=== PATIENT | male | born 1960 | race Caucasian/White ===

== ENCOUNTER 2024-08-16 00:52 | Emergency (ER) | payer BC, SELFPAY ==
[2024-08-16] VITALS (17 sets, daily range): BP systolic 156–172; BP diastolic 79–139; PULSE 81–93; RESP 16–18; TEMP 36.6; O2SAT 94–963
--- NOTE | 2024-08-16 00:56 | W.ED.GENAD ---
Discharge Plan Disposition Patient Disposition: Home Condition: Good Discharge Details Clinical Impression: Laceration of eyebrow, right, Laceration of nose, Subconjunctival hemorrhage, Abrasion, corneal, Traumatic mydriasis, Closed fracture nasal bone Primary Care Provider: None,None ED Provider: Juan Geronimo [place] Meds and New Rx's Prescriptions: New erythromycin 5 mg/gram (0.5 %) Ointment 1 cm OD QID 7 Days Qty: 3.5 0RF Discharge Instructions Instructions: Laceration Repair With Stitches ED, Corneal Abrasion ED, Laceration Repair With Glue ED, Nose Fracture ED, Subconjunctival hemorrhage Additional Instructions: You were seen in the emergency department after a fall with laceration and injury to the right side of your face. Imaging shows no significant injury other than nasal bone fracture which should not require any management. Your eyebrow laceration was repaired and the stitches will need to come out in 5 to 6 days. Your nose laceration was superficial and was repaired with glue. Do not scrub this area and do not apply antibiotic ointment. The right thigh did sustain injury with corneal abrasion, subconjunctival hemorrhage and a stunned pupil. I did speak with ophthalmology at [facility]. Please use the erythromycin ointment for the corneal abrasions. You should see an product design specialist this week when you return home. Return to the ED at once if any eye pain, vision change, double vision, other concerns. Watch for signs of infection to the lacerations which will include increasing redness, pain, swelling. HPI General Mode of arrival: EMS. Date/Time Provider Initiated Documentation: 08/16/24 00:56. Limitations to Documentation: no limitations. Information obtained by: patient and RN notes reviewed. HPI Narrative: Patient presents to ED status post trip and fall. Patient attempted to catch himself but was unable to. He struck a 5 gallon plastic pill that was upside down. Sustained injury to the right eyebrow area. Denies any loss of consciousness. Denies any other injury. Denies neck pain, chest pain, shortness of breath, extremity pain. Denies any neurologic symptoms. Last tetanus was 2013 per the patient. Has been drinking alcohol this evening. Related Data Home Medications ?Medication ?Instructions ?Recorded ?Confirmed erythromycin 5 mg/gram (0.5 %) eye 1 cm OD QID 7 days #3.5 grams 08/16/24 ointment Previous Rx's ?Medication ?Instructions ?Recorded erythromycin 5 mg/gram (0.5 %) eye 1 cm OD QID 7 days #3.5 grams 08/16/24 ointment Allergies Allergy/AdvReac Type Severity Reaction Status Date / Time hay fever Allergy Mild uri Uncoded 08/16/24 00:55 symptoms General Stated Complaint: HeadInjury LILIA: 3 Review of Systems Narrative: Per HPI Exam Narrative Exam Narrative: Const: WDWN male in NAD. VS per triage. HEENT: NC. 2 cm T-shaped stellate laceration to right eyebrow area. Superficial laceration to right side of nose. No orbital tenderness. No nasal tenderness. No hemotympanum. Eyes: Right eye with lateral subconjunctival hemorrhage. Pupil is oval in size and nonreactive. Vision is intact in the right eye. Right eye seems to be turned laterally compared to left eye. Left eye/pupil/conjunctiva completely normal. EOMI. Neck: Supple. Trachea midline. No midline posterior tenderness. Lungs: Normal respiratory effort. Lungs are clear. No chest wall tenderness. Neuro: A+O x 3. Normal speech, mentation. Cranial nerves II - XII grossly intact. No gross motor or sensory deficit. Ext: No deformity or tenderness. Course Vital Signs Vital signs: Vital Signs Temperature 97.9 F 08/16/24 00:53 Pulse 86 08/16/24 00:53 Respiratory Rate 18 08/16/24 00:53 Blood Pressure 165/139 H 08/16/24 00:53 Pulse Oximetry 963 H 08/16/24 00:53 Temperature 97.9 F 08/16/24 00:53 Temperature Source Temporal Artery Scan 08/16/24 00:53 Pulse 86 08/16/24 00:53 Respiratory Rate 18 08/16/24 00:53 Respiratory Effort Normal 08/16/24 00:55 Blood Pressure 165/139 H 08/16/24 00:53 Blood Pressure Position Sitting 08/16/24 00:53 Pulse Oximetry 963 H 08/16/24 00:53 Oxygen Delivery Method Room Air 08/16/24 00:53 Oxygen Flow Rate 0 08/16/24 00:53 Procedures Laceration Laceration 1: Site: face Side (If applicable): right Size (cm): 2 Description: stellate (T shape) and clean Depth: simple, single layer Local anesthetic: Lidocaine 1% and with Epi Amount of anesthesia used (mL): 1.5 Pre-repair: wound explored, irrigated extensively and deep structures intact Skin layer closed with: nylon Size (cm): 5-0 Number of sutures: 8 Technique: simple, interrupted Laceration 2: Site: face Size (cm): 3 Description: linear Depth: simple, single layer Pre-repair: irrigated extensively Skin layer closed with: other (skin adhesive) Medical Decision Making Patient presenting status post trip and fall with his face striking a 5 gallon plastic bucket. No loss of consciousness. No neurologic change. Has a laceration to the right eyebrow area but also has evidence of potential orbital injury with mild disconjugate gaze, subconjunctival hemorrhage, abnormal right pupil. Despite this vision in the right eye appears normal. Will need to get visual acuity. Will test with fluorescein to make sure no evidence of streaming. Will update tetanus. CT head/orbits ordered. No spinal tenderness and neuro intact. Upon return from CT scan patient's eyebrow laceration was anesthetized, irrigated, sutured with good results. Superficial laceration to the nose was cleaned and repaired with skin adhesive. CT of the head and orbits negative except for nasal bone fracture and soft tissue laceration/swelling. Fluorescein staining of the eye reveals 2 small corneal abrasions but no evidence of streaming. Pupil remains enlarged, oval, minimally reactive. It is not teardrop shaped or peaked. Vision remains intact and visual acuity in the right eye is 20/70, left eye 20/70, both eyes 20/50. Case was discussed with ophthalmology at [facility]. Findings on imaging and exam discussed. Patient felt to not have ruptured globe given normal visual acuity and normal CT orbits. Suspect traumatic mydriasis associated with blunt trauma. Will place patient on erythromycin ointment due to the corneal abrasions. Discussed need for ophthalmology follow-up when he returns to [place] this week. Follow-up with primary care for suture removal and 5 to 6 days. Wound care discussed. Return precautions discussed. PFSH All Active Problems (Updated 08/16/24 @ 03:15 by Juan Geronimo MD) Closed fracture nasal bone (Acute) Traumatic mydriasis (Acute) Abrasion, corneal (Acute) Subconjunctival hemorrhage (Acute) Laceration of nose (Acute) Laceration of eyebrow, right (Acute) Medical History (Updated 08/16/24 @ 03:15 by Juan Geronimo MD) No significant past medical history Social History Smoking/Tobacco Use Status: Never Smoking risk assessment performed?: Yes Alcohol Intake: current Alcohol Intake frequency: a few times a month Alcohol type: beer Drug use: Never Substance use type: does not use
[2024-08-16] MEDS: Tetanus & Diphtheria Tox,ADULT 0.5 ML VIAL IM (01:24)
--- NOTE | 2024-08-16 01:35 | DI.CT_ITS ---
Exam(s) CT HEAD ORBITS WO EXAM: CT HEAD ORBITS WO CLINICAL HISTORY: trauma/head injury/R orbit injury. TECHNIQUE: Imaging Protocol: Axial computed tomography images with coronal and sagittal reformatted images were created and reviewed COMPARISON: No exams were available for comparison FINDINGS: CT Head: Ventricles and Extra axial spaces: Normal in size and morphology for the patient's age. Hemorrhage: None. Cerebral parenchyma: No mass effect. No acute territorial infarct. Midline shift: None. Brainstem/Cerebellum: Normal. Calvarium: Normal. There is a mildly depressed right nasal bone fracture. Visualized Paranasal sinuses/Mastoids: There is mucosal thickening in the maxillary sinuses bilateral ly. There is air-fluid level in the left maxillary sinus. There is mucosal thickening in the ethmoi d air cells, sphenoid sinuses and frontal sinuses bilaterally. The mastoid air cells are clear. Soft Tissues: Unremarkable. CT Face: Facial Bones: There is a mildly depressed right nasal bone fracture. Sinuses and Mastoids: Unremarkable. Globes, extraocular muscles, optic nerves and retrobulbar fat: Normal. Upper aerodigestive tract: Normal. Mandible and bilateral temporomandibular joints: Normal. Soft tissues: There is soft tissue swelling overlying the right nasal bone and the right cheek. Ther e is mild right periorbital soft tissue swelling. IMPRESSION: 1. No acute intracranial process. 2. Acute mildly depressed right nasal bone fracture with associated soft tissue swelling. 3. Soft tissue swelling in the right periorbital soft tissues and overlying the right cheek. 4. Unremarkable orbits and retro-orbital soft tissues. 5. Pansinusitis. RADIATION DOSE DELIVERED: 1,008.2mGy.cm Total DLP DATA REPOSITORY: All CT scans at this facility are submitted to the National Radiology Data Registry (NRDR) Dose Index Registry (DIR) with the [employer] ([employer]). RADIATION OPTIMIZATION: All CT scans at this facility use at least one of these dose optimization te chniques: automated exposure control; mA and/or kV adjustment per patient size (includes targeted exa ms where dose is matched to clinical indication); or iterative reconstruction.
[2024-08-16] MEDS: Fluorescein STRIPS 100/BOX 1 MG OP (01:42)
[2024-08-16] MEDS: Lidocaine 1% Multi-Dose W/EPI 1/100,000 10 ML VIAL IJ (01:43)
--- NOTE | 2024-08-16 01:51 | DI.VRAD_ITS ---
PROCEDURE INFORMATION: Exam: CT Head Without Contrast Exam date and time: 08/16/2024 1:25 AM Age: 64 years old Clinical indication: Injury or trauma; Fall; Blunt trauma (contusions or hematomas); Consciousness not specified; Orbit/periorbital; Right; Injury date: 08/16/24; Patient HX: Trauma/head injury/r orbit injury TECHNIQUE: Imaging protocol: Computed tomography of the head without contrast. Radiation optimization: All CT scans at this facility use at least one of these dose optimization techniques: automated exposure control; mA and/or kV adjustment per patient size (includes targeted exams where dose is matched to clinical indication); or iterative reconstruction. COMPARISON: No relevant prior studies available. FINDINGS: Brain: No brain edema. No intracranial hemorrhage. Cerebral ventricles: No ventriculomegaly. Paranasal sinuses: Multifocal bilateral sinusitis. Mastoid air cells: Unremarkable. Bones: Acute displaced nasal bone fractures. Soft tissues: Unremarkable. IMPRESSION: 1. Multifocal bilateral sinusitis. 2. Acute displaced nasal bone fractures. 3. No acute brain findings. PROCEDURE INFORMATION: Exam: CT Maxillofacial Without Contrast Exam date and time: 08/16/2024 1:25 AM Age: 64 years old Clinical indication: Injury or trauma; Fall; Blunt trauma (contusions or hematomas); Consciousness not specified; Orbit/periorbital; Right; Injury date: 08/16/24; Patient HX: Trauma/head injury/r orbit injury TECHNIQUE: Imaging protocol: Computed tomography of the face without contrast. Radiation optimization: All CT scans at this facility use at least one of these dose optimization techniques: automated exposure control; mA and/or kV adjustment per patient size (includes targeted exams where dose is matched to clinical indication); or iterative reconstruction. COMPARISON: No relevant prior studies available. FINDINGS: Orbital cavities: Orbits are normal. Globes are unremarkable. Paranasal sinuses: Multifocal bilateral sinusitis. Bones: Acute comminuted displaced nasal bone fractures. Remaining facial bones intact. Probable acute fracture of the anterosuperior vomer. Soft tissues: Facial contusion/laceration. IMPRESSION: 1. Acute comminuted displaced nasal bone fractures. 2. Probable acute fracture of the anterosuperior vomer. 3. Multifocal bilateral sinusitis. Dictated and Authenticated by: Arvind Grant MD. Ordering:JING Martinez MD
--- OUTSIDE RECORDS SUMMARY | 2024-08-16 03:25 | XMS_ITS | Encounter Summary ---
Author Organization [address] [address] Care Team Providers Care Server Manager Name Role Phone Bam Mayorga MD Primary Care Provider [phone] Encounter Details Date Type Department Care Team (Late st Contact Info) Description 02/28/2024 Orders Only [facility] [address] [place] [address] Bam Mayorga MD [address] [address] Social History Tobacco Use Types Packs/Day Years Used Date Smoking Tobacco: Never Smokeless Tobacco: Never Alcohol Use Standard Drinks/Week Comments No 0 (1 standard drink = 0.6 oz pur e alcohol) Sex and Gender Information Value Date Recorded Sex Assigned at Not on file Gender Identity Not on file Sexual Orientation Not on file documented as of this encounter Plan of Treatment Not on file documented as of this encounter Procedures Procedure Name Priority Date/Time Associated Diagnosis Comments CARDIOVASCULAR RISK ASSESSMENT Routine 02/28/2024 1:11 PM EDT PSA, TOTAL Routine 02/28/2024 1:11 PM EDT MEASLES,MUMPS RUBELLA IMMUNITY Routine 02/28/2024 1:11 PM EDT URINALYSIS WITH REFLEX TO MICROSCOPIC Routine 02/28/2024 1:11 PM EDT SPECIMEN STATUS REPORT (ROLPRB) Routine 02/28/2024 1:11 PM EDT CBC/DIFF AMBIGUOUS DEFAULT Routine 02/28/2024 1:11 PM EDT VARICELLA ZOSTER ANTIBODY, IGG Routine 02/28/2024 1:11 PM EDT HIGH SENSITIVITY CRP Routine 02/28/2024 1:11 PM EDT TSH Routine 02/28/2024 1:11 PM EDT HEMOGLOBIN A1C Routine 02/28/2024 1:11 PM EDT LIPID PANEL Routine 02/28/2024 1:11 PM EDT COMPREHENSIVE METABOLIC PANEL Routine 02/28/2024 1:11 PM EDT documented in this encounter Results * CARDIOVASCULAR RISK ASSESSMENT (02/28/2024 1:11 PM EDT) INTERPRETATION Note [facility] 1 Comment:Supplemental report is available. 02/28/2024 1:11 PM EDT 02/28/2024 Narrative [facility] - 03/02/2024 6:35 AM EDT Performed at: ??01 - [facility] [address] [place] [address] ??[id number] Radio Television Technical Director: Dayna Plasencia MD, Phone: ??[phone] Bam Mayorga MD [facility] PROBLEM CODE S [facility] 1 * SPECIMEN STATUS REPORT (ROLPRB) (02/28/2024 1:11 PM EDT) Specimen Status Report Comment [facility] 1 Comment: Bhargav Abbrefrancis CMP14 Default Ambjuni Abbrefrancis CMP14 Default A hand-written panel/profile was received from your office. In accordance with the [facility] Ambiguous Test Code Policy dated May 2003, we have completed your order by using the closest currently or formerly recognized AMA panel. ??We have assigned Comprehensive Metabolic Panel (14), Test Code #436265 to this request. ??If this is not the testing you wished to receive on this specimen, please contact the [employer] Client Inquiry/Technical Services Department to clarify the test order. ??We appreciate your business. Bhargav Ramirez LP Default Bhargav Ramirez LP Default A hand-written panel/profile was received from your office. In accordance with the [facility] Ambiguous Test Code Policy dated May 2003, we have completed your order by using the closest currently or formerly recognized AMA panel. ??We have assigned Lipid Panel, Test Code #225694 to this request. If this is not the testing you wished to receive on this specimen, please contact the [employer] Client Inquiry/Technical Services Department to clarify the test order. ??We appreciate your business. 02/28/2024 1:11 PM EDT 02/28/2024 Narrative [facility] - 02/29/2024 11:05 AM EDT Performed at: ??01 - [facility] ??[id number] Radio Television Technical Director: Nisha Chowdary MD, Phone: ??[phone] Bam Mayorga MD [facility] PROBLEM CODE S [facility] 1 * High sensitivity CRP (02/28/2024 1:11 PM EDT) CRP, High Sensitivity 1.00 0.00 - 3.00 mg/L [facility] 1 Comment: ? Relative Risk for Future Cardiovascular Event ? Low ? <1.00 ? Average ? 1.00 - 3.00 ? High ?>3.00 02/28/2024 1:11 PM EDT 02/28/2024 Narrative [facility] - 02/29/2024 11:05 AM EDT Performed at: ??01 - [facility] [address] ??[id number] Radio Television Technical Director: Nisha Chowdary MD, Phone: ??[phone] Bam Mayorga MD LAB BLOOD ORDERABLES Performing Organization Address [facility] de Phone Number [facility] 1 * Varicella zoster antibody, IgG (02/28/2024 1:11 PM EDT) Varicella Zoster IgG 1,905 Immune >165 index [facility] 1 Comment: ? Negative ?<135 ? Equivocal ?135 - 165 ? Positive ?>165 A positive result generally indicates exposure to the pathogen or administration of specific immunoglobulins, but it is not indication of active infection or stage of disease. 02/28/2024 1:11 PM EDT 02/28/2024 Narrative [facility] - 02/29/2024 11:05 AM EDT Performed at: ??01 - [facility] [address] ??[id number] Radio Television Technical Director: Nisha Chowdary MD, Phone: ??[phone] Bam Mayorga MD LAB BLOOD ORDERABLES Performing Organization Address [facility] de Phone Number [facility] 1 * (ABNORMAL) PSA, Total (02/28/2024 1:11 PM EDT) Prostate Specific Ag, Serum 6.2(H) 0.0 - 4.0 ng/mL [facility] 1 Comment: Omar ECLIA methodology. According to the [place] [employer], Serum PSA should decrease and remain at undetectable levels after radical prostatectomy. The AUA defines biochemical recurrence as an initial PSA value 0.2 ng/mL or greater followed by a subsequent confirmatory PSA value 0.2 ng/mL or greater. Values obtained with different assay methods or kits cannot be used interchangeably. Results cannot be interpreted as absolute evidence of the presence or absence of malignant disease. 02/28/2024 1:11 PM EDT 02/28/2024 Narrative [facility] - 02/29/2024 11:05 AM EDT Performed at: ??01 - [facility] [address] ??[id number] Radio Television Technical Director: Nisha Chowdary MD, Phone: ??[phone] Bam Mayorga MD LAB BLOOD ORDERABLES Performing Organization Address [facility] de Phone Number [facility] 1 * TSH (02/28/2024 1:11 PM EDT) Pathologist [facility] TSH 1.920 0.450 - 4.500 uIU/mL [facility] 1 02/28/2024 1:11 PM EDT 02/28/2024 Narrative [facility] - 02/29/2024 11:05 AM EDT Performed at: ??01 - [facility] [address] ??[id number] Radio Television Technical Director: Nisha Chowdary MD, Phone: ??[phone] Bam Mayorga MD LAB BLOOD ORDERABLES Performing Organization Address [facility]/ZIP Co de Phone Number [facility] 1 * Hemoglobin A1c (02/28/2024 1:11 PM EDT) Glycohemoglobin A1C 5.6 4.8 - 5.6 % [facility] 1 Comment: ? Prediabetes: 5.7 - 6.4 ? Diabetes: >6.4 ? Glycemic control for adults with diabetes: <7.0 02/28/2024 1:11 PM EDT 02/28/2024 Narrative [facility] - 02/29/2024 11:05 AM EDT Performed at: ??01 - [facility] [address] ??[id number] Radio Television Technical Director: Nisha Chowdary MD, Phone: ??[phone] Bam Mayorga MD LAB BLOOD ORDERABLES [facility] 1 * (ABNORMAL) MEASLES,MUMPS RUBELLA ANTIBODIES (02/28/2024 1:11 PM EDT) Rubella Antibodies, IgG 1.76 Immune >0.99 index [facility] 1 Comment: ?Non-immune ? <0.90 ?Equivocal ??0.90 - 0.99 ?Immune ? >0.99 Rubeola AB, IgG <13.5(L) Immune >16.4 AU/mL [facility] 1 Comment: ? Negative ?<13.5 ? Equivocal 13.5 - 16.4 ? Positive ?>16.4 Presence of antibodies to Rubeola is presumptive evidence of immunity except when acute infection is suspected. Mumps Abs, IgG 10.6(L) Immune >10.9 AU/mL [facility] 1 Comment: A second sample should be collected and tested no less than 2-4 weeks. ?Negative ? <9.0 ?Equivocal ??9.0 - 10.9 ?Positive ?>10.9 A positive result generally indicates past exposure to Mumps virus or previous vaccination. 02/28/2024 1:11 PM EDT 02/28/2024 Narrative [facility] - 02/29/2024 11:05 AM EDT Performed at: ??01 - [facility] [place] [address] [place], [place] ??[id number] Radio Television Technical Director: Nisha Chowdary MD, Phone: ??[phone] Bam Mayorga MD LAB BLOOD ORDERABLES [facility] * (ABNORMAL) Lipid panel (02/28/2024 1:11 PM EDT) Cholesterol, Total 208(H) 100 - 199 mg/dL [facility] 1 Triglycerides 127 0 - 149 mg/dL [facility] 1 HDL Cholesterol 41 >39 mg/dL [facility] 1 VLDL 23 5 - 40 mg/dL [facility] 1 LDL Cholesterol Calc 144(H) 0 - 99 mg/dL [facility] 1 02/28/2024 1:11 PM EDT 02/28/2024 Narrative [facility] - 02/29/2024 11:05 AM EDT Performed at: ??01 - [facility] [place] [address] [place], [place] ??[id number] Radio Television Technical Director: Nisha Chowdary MD, Phone: ??[phone] Bam Mayorga MD LAB BLOOD ORDERABLES Performing Organization Address [facility] Co de Phone Number [facility] 1 * Urinalysis with Reflex to Microscopic (02/28/2024 1:11 PM EDT) Specific [place] 1.007 1.005 - 1.030 [facility] 1 pH Urine 6.5 5.0 - 7.5 [facility] 1 Color Yellow Yellow [facility] 1 Appearance Urine Clear Clear [facility] 1 WBC Esterase Negative Negative [facility] 1 Protein, Urine Negative Negative/Tra ce [facility] 1 Glucose UA Negative Negative [facility] 1 Ketones Negative Negative [facility] 1 Occult Blood Negative Negative [facility] 1 Bilirubin, Urine Negative Negative [facility] 1 Urobilinogen, Semi-Qn 0.2 0.2 - 1.0 mg/dL [facility] 1 Nitrite Negative Negative [facility] 1 Microscopic Examination Comment [facility] 1 Comment:Microscopic not vanessa cated and not performed. 02/28/2024 1:11 PM EDT 02/28/2024 Narrative [facility] - 02/29/2024 11:05 AM EDT Performed at: ??01 - [facility] [address] ??[id number] [employer] Television Technical Director: Nisha Chowdary MD, Phone: ??[phone] Bam Mayorga MD URINE ORDERABLES Performing Organization Address [facility] Co de Phone Number [facility] * (ABNORMAL) Comprehensive metabolic panel(CMP) (02/28/2024 1:11 PM EDT) Glucose 95 70 - 99 mg/dL [facility] 1 BUN 10 8 - 27 mg/dL [facility] 1 Creatinine 1.14 0.76 - 1.27 mg/dL [facility] 1 eGFR (CKD-EPI ) 72 >59 mL/min/1.7 3 [facility] 1 BUN/Creatinine Ratio 9(L) 10 - 24 [facility] 1 Sodium 139 134 - 144 mmol/L [facility] 1 Potassium 4.6 3.5 - 5.2 mmol/L [facility] 1 Chloride 101 96 - 106 mmol/L [facility] 1 Carbon Dioxide 26 20 - 29 mmol/L [facility] 1 Calcium 9.5 8.6 - 10.2 mg/dL [facility] 1 Protein, Total 6.8 6.0 - 8.5 g/dL [facility] 1 Albumin 4.2 3.9 - 4.9 g/dL [facility] 1 Globulin 2.6 1.5 - 4.5 g/dL [facility] 1 A/G Ratio 1.6 1.2 - 2.2 [facility] 1 Total Bilirubin 0.8 0.0 - 1.2 mg/dL [facility] 1 Alkaline Phosphatase 90 44 - 121 IU/L [facility] 1 AST (SGOT) 19 0 - 40 IU/L [facility] 1 ALT (SGPT) 19 0 - 44 IU/L [facility] 1 02/28/2024 1:11 PM EDT 02/28/2024 Narrative [facility] - 02/29/2024 11:05 AM EDT Performed at: ??01 - [facility] [address] ??[id number] Radio Television Technical Director: Nisha Chowdary MD, Phone: ??[phone] Bam Mayorga MD LAB BLOOD ORDERABLES [facility] 1 * CBC/Diff Ambiguous Default (02/28/2024 1:11 PM EDT) WBC 6.9 3.4 - 10.8 x10E3/uL [facility] 1 RBC 5.75 4.14 - 5.80 x10E6/uL [facility] 1 Hemoglobin 16.7 13.0 - 17.7 g/dL [facility] 1 Hematocrit 49.7 37.5 - 51.0 % [facility] 1 MCV 86 79 - 97 fL [facility] 1 MCH 29.0 26.6 - 33.0 pg [facility] 1 MCHC 33.6 31.5 - 35.7 g/dL [facility] 1 RDW 12.3 11.6 - 15.4 % [facility] 1 Platelet Count 310 150 - 450 x10E3/uL [facility] 1 Neutrophils 66 Not Estab. % [facility] 1 Lymphocytes 21 Not Estab. % [facility] 1 Monocytes 9 Not Estab. % [facility] 1 Eosinophils % Auto 3 Not Estab. % [facility] 1 Basophils 1 Not Estab. % [facility] 1 Neutrophils Absolute 4.6 1.4 - 7.0 x10E3/uL [facility] 1 Lymphocytes Absolute 1.5 0.7 - 3.1 x10E3/uL [facility] 1 Monocytes Absolute 0.6 0.1 - 0.9 x10E3/uL [facility] 1 Eosinophils Absolute 0.2 0.0 - 0.4 x10E3/uL [facility] 1 Basophils Absolute 0.1 0.0 - 0.2 x10E3/uL [facility] 1 Immature Granulocytes 0 Not Estab. % [facility] 1 Immature Granulocytes ABS 0.0 0.0 - 0.1 x10E3/uL [facility] 1 Comment: A hand-written panel/profile was received from your office. In accordance with the [facility] Ambiguous Test Code Policy dated May 2003, we have assigned CBC with Differential/Platelet, Test Code #[id number] to this request. If this is not the testing you wished to receive on this specimen, please contact the [facility] Client Inquiry/ Technical Services Department to clarify the test order. We appreciate your business. 02/28/2024 1:11 PM EDT 02/28/2024 Narrative [facility] - 02/29/2024 11:05 AM EDT Performed at: ??01 - [facility] [address] ??[id number] Radio Television Technical Director: Nisha Chowdary MD, Phone: ??[phone] Bam Mayorga MD [facility] PROBLEM CODE S [facility] 1 documented in this encounter Visit Diagnoses Not on filedocumented in this encounter Care Teams Server Manager Relationship Specialty Start Date End Date Bam Mayorga MD [facility] [address] [address] PCP - General Internal Medicine 01/09/18 documented as of this encounter
--- OUTSIDE RECORDS SUMMARY | 2024-08-16 03:25 | XMS_ITS | Clinical Summary ---
Author Organization [facility] Address [address] [place] [address] Care Team Providers Care Flow Floor Attendant Name Role Phone Bam Mayorga MD Primary Care Provider [phone] Allergies No known active allergies Medications No known medications Active Problems Problem Noted Date Diagnosed Date Hyperlipidemia Immunizations Name Administration Dates Next Due Hepatitis B 02/01/2006 Td 04/13/2008 Family History Medical History Relation Comments No Known Problems Daughter No Known Problems Father Relation Status Comments Daughter Alive Father Mother Social History Tobacco Use Types Packs/Day Years Used Date Smoking Tobacco: Never Smokeless Tobacco: Never Alcohol Use Standard Drinks/Week Comments No 0 (1 standard drink = 0.6 oz pur e alcohol) Sex and Gender Information Value Date Recorded Sex Assigned at Not on file Gender Identity Not on file Sexual Orientation Not on file Last Filed Vital Signs Vital Sign Reading Time Taken Comments Blood Pressure 138/102 01/09/2018 6:55 PM EST Pulse 112 01/09/2018 6:55 PM EST Temperature 36.8 ??C (98.2 ??F) 01/09/2018 6:55 PM ES T Respiratory Rate 20 01/09/2018 6:55 PM EST Oxygen Saturation 98% 01/09/2018 6:55 PM EST Inhaled Oxygen Concentration - - Weight 96.2 kg (212 lb) 01/09/2018 6:55 PM EST Height 175.3 cm (5' 9) 01/09/2018 6:55 PM EST Body Mass Index 31.31 01/09/2018 6:55 PM EST Plan of Treatment Health Maintenance Due Date Last Done Comments Preventative/Well Visit 1962 [facility] ANNUAL DEPRESSION SCREENING 1972 [facility] BLOOD PRESSURE 140/ 90 OR UNDER 1978 [facility] BMI DOCUMENTED 1978 [facility] TOBACCO CESSATION COUNSELING 1978 HEPATITIS C SCREENING 1978 [facility] ACCESS TO PREVENTIVE/AMBULATORY VISIT 1980 COLOGUARD 2005 COLONOSCOPY 2005 COLORECTAL CANCER SCREENING 2005 FIT (Fecal Immunochemical Test) 2005 FOBT 2005 SIGMOIDOSCOPY 2005 [facility] COLON FOBT 2010 [facility] COLONOGRAPHY (CT) 2010 [facility] COLONOSCOPY 2010 [facility] FIT-DNA TEST 2010 [facility] FLEX SIGMOIDOSCOPY 2010 Colon Cancer Screenings 2010 Shingrix Vaccine (#1) 2010 RSV Vaccine Needed (1 - 1-do se 60+ series) 2020 INFLUENZA VACCINE 06/18/2024 COVID VACCINE (2023- season) 2024 Pneumococcal Vaccine: Ped & Adult <65 Aged Out No longer eligible b ased on patient's age to complete this topic Care Teams Flow Floor Attendant Relationship Specialty Start Date End Date Bam Mayorga MD [facility] [address] [address] PCP - General Internal Medicine 01/09/18
--- OUTSIDE RECORDS SUMMARY | 2024-08-16 03:25 | XMS_ITS | Encounter Summary ---
Author Organization [facility] Address [address] [place] [address] Care Team Providers Care Radio Frequency Engineer Name Role Phone Bam Mayorga MD Primary Care Provider [phone] Encounter Details Date Type Department Care Team (Late st Contact Info) Description 01/09/2018 Abstract [facility] [address] [phone] Bam Mayorga MD [address] [address] Social History Tobacco Use Types Packs/Day Years [...] on file documented as of this encounter Visit Diagnoses Not on filedocumented in this encounter Care Teams Radio Frequency Engineer Relationship Specialty Start Date End Date Bam Mayorga MD [address] [place] [address] PCP - General Internal Medicine 01/09/18 documented as of this encounter
--- OUTSIDE RECORDS SUMMARY | 2024-08-16 03:25 | XMS_ITS | Encounter Summary ---
Author Organization [address] [address] Care Team Providers Care Community Relations Assistant Name Role Phone Bam Mayorga MD Primary Care Provider [phone] Encounter Details Date Type Department Care Team (Late st Contact Info) Description 02/05/[address] [facility] [address] [place] [address] Bam Mayorga MD [address] [address] Social History Tobacco Use Types Packs/Day Years [...] Associated Diagnosis Comments CARDIOVASCULAR RISK ASSESSMENT Routine 02/05/2020 1:04 PM EDT LITHOLINK CKD PROGRAM Routine 02/05/2020 1:04 PM EDT PSA, TOTAL Routine 02/05/2020 1:04 PM EDT URINALYSIS WITH REFLEX TO MICROSCOPIC Routine 02/05/2020 1:04 PM EDT SPECIMEN STATUS REPORT (ROLPRB) Routine 02/05/2020 1:04 PM EDT CBC/DIFF AMBIGUOUS DEFAULT Routine 02/05/2020 1:04 PM EDT C-REACTIVE PROTEIN Routine 02/05/2020 1: 04 PM EDT TSH Routine 02/05/2020 1:04 PM EDT HEMOGLOBIN A1C Routine 02/05/2020 1:04 PM EDT LIPID PANEL Routine 02/05/2020 1:04 PM EDT COMPREHENSIVE METABOLIC PANEL Routine 02/05/2020 1:04 PM EDT documented in this encounter Results * SPECIMEN STATUS REPORT (ROLPRB) (02/05/2020 1:04 PM EDT) Specimen Status Report Comment [facility] 1 Comment: Ambig Abbrev CMP14 Default Ambig Abbrev CMP14 Default A hand-written panel/profile was received from your office. In accordance with the [facility] Ambiguous Test Code Policy dated May 2003, we have completed your order by using the closest currently or formerly recognized AMA panel. ??We have assigned Comprehensive Metabolic Panel (14), Test Code #[id number] to this request. ??If this is not the testing you wished to receive on this specimen, please contact the [facility] Client Inquiry/Technical Services Department to clarify the test order. ??We appreciate your business. Ambig Abbrev LP Default Ambig Abbrev LP Default A hand-written panel/profile was received from your office. In accordance with the [facility] Ambiguous Test Code Policy dated May 2003, we have completed your order by using the closest currently or formerly recognized AMA panel. ??We have assigned Lipid Panel, Test Code #[id number] to this request. If this is not the testing you wished to receive on this specimen, please [facility] to clarify the test order. ??We appreciate your business. 02/05/2020 1:04 PM EDT 02/05/2020 Narrative [facility] - 02/08/2020 2:05 PM EDT Performed at: ??01 - [facility] ??[id number] Cl[employer] Bale Header: Sara Zuñiga MD, Phone: ??[phone] Bam Mayorga MD [facility] PROBLEM CODE S Performing Organization Address [facility] de Phone Number [facility] 1 * C-reactive protein (02/05/2020 1:04 PM EDT) C-Reactive Protein 2 0 - 10 mg/L [facility] 1 02/05/2020 1:04 PM EDT 02/05/2020 Narrative [facility] - 02/08/2020 2:05 PM EDT Performed at: ??01 - [facility] [address] ??[id number] [employer] Header: Sara Zuñiga MD, Phone: ??[phone] Bam Mayorga MD LAB BLOOD ORDERABLES Performing Organization Address [facility] de Phone Number [facility] 1 * (ABNORMAL) PSA, Total (02/05/2020 1:04 PM EDT) Prostate Specific Ag, Serum 5.1(H) 0.0 - 4.0 ng/mL [facility] 1 Comment: Omar ECLIA methodology. According to the [employer], Serum PSA should decrease and [...] the presence or absence of malignant disease. 02/05/2020 1:04 PM EDT 02/05/2020 Narrative [facility] - 02/08/2020 2:05 PM EDT Performed at: ??01 - [facility] ??[id number] [employer] Header: Sara Zuñiga MD, Phone: ??[phone] Bam Mayorga MD LAB BLOOD ORDERABLES Performing Organization Address [facility]/ZIP Co de Phone Number [facility] * TSH (02/05/2020 1:04 PM EDT) Pathologist [facility] TSH 2.150 0.450 - 4.500 uIU/mL [facility] 1 02/05/2020 1:04 PM EDT 02/05/2020 Narrative [facility] - 02/08/2020 2:05 PM EDT Performed at: ??01 - [facility] [address] ??[id number] [employer] Header: Sara Zuñiga MD, Phone: ??[phone] Bam Mayorga MD LAB BLOOD ORDERABLES Performing Organization Address [facility] de Phone Number [facility] 1 * Hemoglobin A1c (02/05/2020 1:04 PM EDT) [facility] [address] Glycohemoglobin A1C 5.1 4.8 - 5.6 % [facility] 1 Comment: ? Prediabetes: 5.7 - 6.4 ? Diabetes: >6.4 ? Glycemic control for adults with diabetes: <7.0 02/05/2020 1:04 PM EDT 02/05/2020 Narrative [facility] - 02/08/2020 2:05 PM EDT Performed at: ??01 - [facility] [address] ??[id number] [employer] Header: Sara Zuñiga MD, Phone: ??[phone] Bam Mayorga MD LAB BLOOD ORDERABLES Performing Organization Address [facility] Co de Phone Number [facility] 1 * LITHOLINK CKD PROGRAM (02/05/2020 1:04 PM EDT) Pathologist [facility] Interpretation Note [facility] 2 Comment:Supplemental report is available. 02/05/2020 1:04 PM EDT 02/05/2020 Narrative [facility] - 02/08/2020 2:05 PM EDT Performed at: ??02 - [facility] [address] [place], [place], [place] ??[id number] Cl[employer]ale Header: Carloz Watts MD, Phone: ??[phone] Bam Mayorga MD [facility] PROBLEM CODE S Performing Organization Address City/[facility]/ZIP Co de Phone Number [facility] * CARDIOVASCULAR RISK ASSESSMENT (02/05/2020 1:04 PM EDT) INTERPRETATION Note [facility] 2 Comment:Supplemental report is available. PDF Image Not applicable [facility] 2 02/05/2020 1:04 PM EDT 02/05/2020 Narrative [facility] - 02/08/2020 2:05 PM EDT Performed at: ??02 - [facility] [address] [place], [place] ??[id number] [employer] Header: Carloz Watts MD, Phone: ??[phone] Bam Mayorga MD [facility] PROBLEM CODE S Performing Organization Address [facility] Co de Phone Number [facility] * (ABNORMAL) Lipid panel (02/05/2020 1:04 PM EDT) Cholesterol, Total 210(H) 100 - 199 mg/dL [facility] 1 Triglycerides 108 0 - 149 mg/dL [facility] 1 HDL Cholesterol 49 >39 mg/dL [facility] 1 VLDL 22 5 - 40 mg/dL [facility] 1 LDL Cholesterol Calc 139(H) 0 - 99 mg/dL [facility] 1 02/05/2020 1:04 PM EDT 02/05/2020 Narrative [facility] - 02/08/2020 2:05 PM EDT Performed at: ??01 - [facility] [address] ??[id number] [employer] Header: Sara Zuñiga MD, Phone: ??[phone] Bam Mayorga MD LAB BLOOD ORDERABLES [facility] 1 * Urinalysis with Reflex to Microscopic (02/05/2020 1:04 PM EDT) Specific [place] 1.013 1.005 - 1.030 [facility] 1 pH Urine 6.0 5.0 - 7.5 [facility] 1 Color Yellow Yellow [facility] 1 Appearance Urine Clear Clear [facility] 1 WBC Esterase Negative Negative [facility] 1 Protein Urine, Total Negative Negative/Tra ce [facility] 1 Glucose UA Negative Negative [facility] 1 Ketones Negative Negative [facility] 1 Occult Blood Negative Negative [facility] 1 Bilirubin Urine Total Negative Negative [facility] 1 Urobilinogen, Semi-Qn 0.2 0.2 - 1.0 mg/dL [facility] 1 Nitrite Negative Negative [facility] 1 Microscopic Examination Comment [facility] 1 Comment:Microscopic follows if indicated. 02/05/2020 1:04 PM EDT 02/05/2020 Narrative [facility] - 02/08/2020 2:05 PM EDT Performed at: ??01 - [facility] [address] ??[id number] [employer] Header: Sara Zuñiga MD, Phone: ??[phone] Bam Mayorga MD URINE ORDERABLES [facility] * (ABNORMAL) Comprehensive metabolic panel(CMP) (02/05/2020 1:04 PM EDT) Pathologist [facility] Glucose 92 65 - 99 mg/dL [facility] 1 BUN 11 6 - 24 mg/dL [facility] 1 Creatinine 1.37(H) 0.76 - 1.27 mg/dL [facility] 1 Non-Afr.Amer. GFR 56(L) >59 mL/min/1.7 3 [facility] 1 Afr.Amer. GFR 65 >59 mL/min/1.7 3 [facility] 1 BUN/Creatinine Ratio 8(L) 9 - 20 [facility] 1 Sodium 139 134 - 144 mmol/L [facility] 1 Potassium 4.4 3.5 - 5.2 mmol/L [facility] 1 Chloride 101 96 - 106 mmol/L [facility] 1 Carbon Dioxide 22 20 - 29 mmol/L [facility] 1 Calcium 9.7 8.7 - 10.2 mg/dL [facility] 1 Protein, Total 6.9 6.0 - 8.5 g/dL [facility] 1 Albumin 4.3 3.8 - 4.9 g/dL [facility] 1 Globulin 2.6 1.5 - 4.5 g/dL [facility] 1 A/G Ratio 1.7 1.2 - 2.2 [facility] 1 Total Bilirubin 0.7 0.0 - 1.2 mg/dL [facility] 1 Alkaline Phosphatase 83 39 - 117 IU/L [facility] 1 AST (SGOT) 21 0 - 40 IU/L [facility] 1 ALT (SGPT) 22 0 - 44 IU/L [facility] 1 02/05/2020 1:04 PM EDT 02/05/2020 Narrative [facility] - 02/08/2020 2:05 PM EDT Performed at: ??01 - [facility] ??[id number] [employer] Header: Sara Zuñiga MD, Phone: ??[phone] Bam Mayorga MD LAB BLOOD ORDERABLES [facility] * CBC/DIFF AMBIGUOUS DEFAULT (816604) (02/05/2020 1:04 PM EDT) WBC 6.8 3.4 - 10.8 x10E3/uL [facility] 1 RBC 5.67 4.14 - 5.80 x10E6/uL [facility] 1 Hemoglobin 16.8 13.0 - 17.7 g/dL [facility] 1 Hematocrit 49.4 37.5 - 51.0 % [facility] 1 MCV 87 79 - 97 fL [facility] 1 MCH 29.6 26.6 - 33.0 pg [facility] 1 MCHC 34.0 31.5 - 35.7 g/dL [facility] 1 RDW 12.5 11.6 - 15.4 % [facility] 1 Platelets 332 150 - 450 x10E3/uL [facility] 1 Neutrophils 65 Not Estab. % [facility] 1 Lymphocytes 18 Not Estab. % [facility] 1 Monocytes 11 Not Estab. % [facility] 1 Eosinophils 5 Not Estab. % [facility] 1 Basophils 1 Not Estab. % [facility] 1 Neutrophils Absolute 4.4 1.4 - 7.0 x10E3/uL [facility] 1 Lymphocytes, Absolute 1.2 0.7 - 3.1 x10E3/uL [facility] 1 Monocytes Absolute 0.7 0.1 - 0.9 x10E3/uL [facility] 1 Eosinophils Absolute 0.3 0.0 - 0.4 x10E3/uL [facility] 1 Basophils Absolute 0.1 0.0 - 0.2 x10E3/uL [facility] 1 Immature Granulocytes 0 Not Estab. % [facility] 1 Immature Granulocytes ABS 0.0 0.0 - 0.1 x10E3/uL [facility] 1 Comment: A hand-written panel/profile was received from your office. In accordance with the [facility] Ambiguous Test Code Policy dated May 2003, we have assigned CBC with Differential/Platelet, Test Code #[id number] to this request. If this is not the testing you wished to receive on this specimen, please contact the [facility] Client Inquiry/ Technical Services Department to clarify the test order. We appreciate your business. 02/05/2020 1:04 PM EDT 02/05/2020 Narrative [facility] - 02/08/2020 2:05 PM EDT Performed at: ??01 - [facility] [address] ??[id number] [employer] Header: Sara Zuñiga MD, Phone: ??[phone] Specimen Comment: A duplicate report has been generated due to demographic updates. Bam Mayorga MD [facility] PROBLEM CODE S [facility] 1 documented in this encounter Visit Diagnoses Not on filedocumented in this encounter Care Teams Community Relations Assistant Relationship Specialty Start Date End Date Bam Mayorga MD [facility] [address] [address] PCP - General Internal Medicine 01/09/18 documented as of this encounter
--- OUTSIDE RECORDS SUMMARY | 2024-08-16 03:25 | XMS_ITS | Encounter Summary ---
Author Organization [facility] Address [address] [place] [address] Care Team Providers Care Lead Programmer Analyst Name Role Phone Bam Mayorga MD Primary Care Provider [phone] Reason for Visit * Reason Comments Influenza Patient presents for influenza, symptoms include arthralgia, fever, fatigue. Encounter Details Date Type Department Care Team ([facility] Contact Info) Description 01/09/2018 6:30 PM EST Follow-Up [facility] [address] 1 [place] [address] Bam Mayorga MD [address] 1 [place], [place] [id number] Upper respiratory tract infection, unspecified type (Primary Dx) [J06.9] Social History Tobacco Use Types Packs/Day Years Used Date Smoking Tobacco: Never Smokeless Tobacco: Never Alcohol Use Standard Drinks/Week Comments No 0 (1 standard drink = 0.6 oz pur e alcohol) Sex and Gender Information Value Date Recorded Sex Assigned at Not on file Gender Identity Not on file Sexual Orientation Not on file documented as of this encounter Last Filed Vital Signs Vital Sign Reading [...] Mass Index 31.31 01/09/2018 6:55 PM EST documented in this encounter Progress Notes * Bam Mayorga MD - 01/09/2018 6:30 PM EST Subjective : The patient presents to the office with respiratory tract symptoms. Chief Complaint Patient presents with ??? Influenza Patient presents for influenza, symptoms include arthralgia, fever, fatigue. HPI Humza Catalan is a 57 y.o. male who presents for : 1. Upper respiratory tract infection, unspecified type The patient has been ill x 3 days. He complains of a sore throat, nasal symptoms, cough and sneezing. +Chills and sweats. +Aches and pains. No earaches. No significant improvement with [id number]-qmktbch medication. Past Medical History: Diagnosis Date ??? Allergic rhinitis ??? Hyperlipidemia Past Surgical History: Procedure Laterality Date ??? 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 WISDOM TOOTH EXTRACTION Family History Problem Relation Age of Onset ??? No Known Problems Father ??? No Known Problems Daughter Social History Social History Substance Use Topics ??? Smoking status: Never Smoker ??? Smokeless tobacco: Never Used ??? Alcohol use No No Known Allergies No current outpatient prescriptions on file. No current facility-administered medications for this visit. Review of Systems Constitutional: Positive for chills, diaphoresis, fatigue and fever. HENT: Positive for postnasal drip, rhinorrhea and sore throat. Negative for ear pain. Eyes: Negative for photophobia and pain. Respiratory: Positive for cough. Negative for shortness of breath. Cardiovascular: Negative for chest pain, palpitations and leg swelling. Gastrointestinal: Negative for abdominal pain and nausea. Endocrine: Negative for polydipsia, polyphagia and polyuria. Genitourinary: Negative for dysuria, flank pain, hematuria and urgency. Musculoskeletal: Negative for back pain and neck pain. Skin: Negative for rash and wound. Neurological: Negative for dizziness, seizures and headaches. Hematological: Negative for adenopathy. Does not bruise/bleed easily. Psychiatric/Behavioral: Negative for confusion and hallucinations. Objective Vitals: 01/09/18 1855 BP: (!) 138/102 Pulse: 112 Resp: 20 Temp: 36.8 ??C (98.2 ??F) TempSrc: Oral SpO2: 98% Weight: 96.2 kg (212 lb) Height: 1.753 m (5' 9) Physical Exam Constitutional: He appears well-developed and well-nourished. Ill appearing patient. HENT: Head: Normocephalic and atraumatic. There is mild injection of both tympanic membranes, and erythema of posterior pharynx. Eyes: Conjunctivae and EOM are normal. Pupils are equal, round, and reactive to light. No scleral icterus. Neck: Normal range of motion. Neck supple. No tracheal deviation present. No thyromegaly ( no goiter.) present. Cardiovascular: Normal rate, regular rhythm and normal heart sounds. No murmur heard. Pulmonary/Chest: No respiratory distress. He has no wheezes. Rales: No rales. Occasional cough. Abdominal: He exhibits no distension. There is no tenderness. Musculoskeletal: He exhibits no edema or tenderness. Neurological: No cranial nerve deficit. Coordination normal. Skin: No rash noted. No erythema. No pallor. Psychiatric: He has a normal mood and affect. Thought content normal. Assessment/Plan 1. Upper respiratory tract infection, unspecified type Symptoms and findings are consistent with probable acute influenza. Will treat Tamiflu however willalso give a prescription for an antibiotic cover for bacterial disease. Also a prescription will begiven for cough medication. The patient has been advised to increase fluid intake and may take Tylenol PRN. Robitussin or Mucinex may be used for cough. Patient is to rest and avoid strenuous activity, and may contact our office as needed. - oseltamivir (TAMIFLU) 75 mg capsule; Take 1 capsule (75 mg total) by mouth 2 times a day. Dispense: 10 capsule; Refill: 0 - azithromycin (ZITHROMAX Z-OLAYINKA) 250 mg tablet; Take 2 tablets (500 mg) on Day 1, followed by 1 tablet (250 mg) once daily on Days 2 through 5. Dispense: 6 tablet; Refill: 0 - codeine-guaiFENesin (guaiFENesin AC) 10-100 mg/5 mL oral liquid; Take 5 mL by mouth every 4 hoursas needed for cough. Dispense: 236 mL; Refill: 0 Bam Mayorga 01/09/2018, 7:42 PM documented in this encounter Plan of Treatment Not on file documented as of this encounter Visit Diagnoses Diagnosis Upper respiratory tract infection, unspecified type- Primary documented in this encounter Care Teams Lead Programmer Analyst Relationship Specialty Start Date End Date Bam Mayorga MD [address] [facility] 1 [place] [address] PCP - General Internal Medicine 01/09/18 documented as of this encounter
[2024-08-16] MEDS: Erythromycin Ophth Oint 3.5 GM TUBE OD (03:29)
== END 2024-08-16 08:04 | disposition home or self-care (01) ==
PROVIDERS: Emergency Provider Emergency Medicine
DX: S02.2XXA Fracture of nasal bones, initial encounter for closed fracture (principal); S05.01XA Injury of conjunctiva and corneal abrasion without foreign body, right eye, initial encounter; S01.111A Laceration without foreign body of right eyelid and periocular area, initial encounter; H11.31 Conjunctival hemorrhage, right eye; H57.04 Mydriasis; Z23 Encounter for immunization; W01.118A Fall on same level from slipping, tripping and stumbling with subsequent striking against other sharp object, initial encounter
CPT/HCPCS: 12013; 90714; 99284; 70450; 70480; 99283; J2004